=== PATIENT | female | born 1985 | race Caucasian/White ===

== ENCOUNTER 2017-02-23 00:13 | Emergency (ER) | payer BC, OTHER ==
[~2017-02-23] VITALS: Ht 157.5 cm; Wt 78.0 kg
[~2017-02-23 00:13] MED LIST: FIORICET 50-301 EACH PO; SUDOGEST30 MG PO; XANAX XR1 MG PO
[2017-02-23] MEDS ORDERED: OCUFLOX5 ML OU (01:08)
[2017-02-23] MEDS ORDERED: ACULAR5 ML OU (01:08)
[2017-02-23] MEDS ORDERED: PERCOCET 5-3251 EACH PO (01:08)
== END 2017-02-23 02:30 | disposition home or self-care (01) ==
LOC: ED 00:13
DX: H18.823 Corneal disorder due to contact lens, bilateral (principal); F41.9 Anxiety disorder, unspecified; F17.200 Nicotine dependence, unspecified, uncomplicated; Z90.49 Acquired absence of other specified parts of digestive tract; Z88.8 Allergy status to other drugs, medicaments and biological substances; Z79.899 Other long term (current) drug therapy
CPT/HCPCS: 99283

== ENCOUNTER 2017-06-03 04:55 | Emergency (ER) | payer BC ==
[~2017-06-03] VITALS: Ht 157.5 cm; Wt 80.7 kg
[~2017-06-03 04:55] MED LIST changes: +ACULAR5 ML OU; +OCUFLOX5 ML OU; +PERCOCET 5-3251 EACH PO
[2017-06-03] MEDS ORDERED: ALPRAZOLAM0.25 MG PO (05:09)
[2017-06-03] MEDS ORDERED: CHROMIUM PICO200 MC1 PO (05:09)
== END 2017-06-03 06:24 | disposition home or self-care (01) ==
LOC: ED 04:55
DX: G43.909 Migraine, unspecified, not intractable, without status migrainosus (principal); F41.9 Anxiety disorder, unspecified; F17.200 Nicotine dependence, unspecified, uncomplicated; Z87.442 Personal history of urinary calculi; Z90.49 Acquired absence of other specified parts of digestive tract; Z91.041 Radiographic dye allergy status; Z88.8 Allergy status to other drugs, medicaments and biological substances; Z79.899 Other long term (current) drug therapy
CPT/HCPCS: 96361; 96374; 96375; 99282; J1200; J1885; J2765; J7030

== ENCOUNTER 2017-10-03 08:59 | Emergency (ER) | payer OTHER, BC ==
[~2017-10-03] VITALS: Ht 157.5 cm; Wt 80.7 kg
[~2017-10-03 08:59] MED LIST changes: +ALPRAZOLAM0.25 MG PO; +CHROMIUM PICO200 MC1 PO
== END 2017-10-03 09:47 | disposition home or self-care (01) ==
LOC: ED 08:59
DX: S16.1XXA Strain of muscle, fascia and tendon at neck level, initial encounter (principal); F41.9 Anxiety disorder, unspecified; F17.200 Nicotine dependence, unspecified, uncomplicated; Z87.442 Personal history of urinary calculi; Z90.49 Acquired absence of other specified parts of digestive tract; Z91.041 Radiographic dye allergy status; Z88.5 Allergy status to narcotic agent; Z88.8 Allergy status to other drugs, medicaments and biological substances; Z79.899 Other long term (current) drug therapy; V43.52XA Car driver injured in collision with other type car in traffic accident, initial encounter
CPT/HCPCS: 99282

== ENCOUNTER 2025-08-14 17:53 | Emergency (ER) | payer OTHER ==
[~2025-08-14] VITALS: Ht 157.5 cm; Wt 91.5 kg
[2025-08-14] MEDS ORDERED: HYDROCHLOROTHIA25 MG PO (18:06)
[2025-08-14] MEDS ORDERED: CETIRIZINE HCL10 MG PO (18:06)
[2025-08-14] MEDS ORDERED: TRAMADOL HCL 50 MG TAB PO ONE (18:45)
[2025-08-14] MEDS ORDERED: ACETAMINOPHEN 500 MG TAB PO ONE (18:45)
[2025-08-14] MEDS ORDERED: CYCLOBENZAPRINE HCL 10 MG TAB PO ONE (18:45)
[2025-08-14] MEDS ORDERED: LIDOCAINE HCL 4% 1 EACH PATCH TD ONE (18:45)
[2025-08-14] MEDS ORDERED: KETOROLAC TROMETHAMINE 60 MG/2 ML VIAL IM ONE (18:45)
[2025-08-14] MEDS ORDERED: TRAMADOL HCL50 MG PO (18:46)
[2025-08-14] MEDS ORDERED: CYCLOBENZAPRINE10 MG PO (18:46)
== END 2025-08-14 19:45 | disposition home or self-care (01) ==
LOC: ED 17:53
DX: M54.41 Lumbago with sciatica, right side (principal); G43.909 Migraine, unspecified, not intractable, without status migrainosus; I10 Essential (primary) hypertension; F17.200 Nicotine dependence, unspecified, uncomplicated; Z79.899 Other long term (current) drug therapy; Z91.041 Radiographic dye allergy status; Z88.5 Allergy status to narcotic agent; Z88.8 Allergy status to other drugs, medicaments and biological substances
CPT/HCPCS: 96372; 99283; A9270; J1885